=== PATIENT | female | born 1995 | race Caucasian/White ===

== ENCOUNTER 2021-06-28 21:52 | Inpatient (IN) ==
[2021-06-28] MEDS ORDERED: OXYTOCIN 30 UNITS/500 ML BAG IV PRN ×2 (22:03)
--- NOTE | 2021-06-28 22:40 | Labor Progress Brief Note ---
Date of Service June 28, 2021 Subjective 26yo at 38w6d with SIUP, presents with PROM at home this evening for copious clear fluid. No CTX, no VB, good FM. C/B GDM diet controlled and obesity. Assessment & Plan (1) PROM (premature rupture of membranes): Plan: Ruptured, not in labor, good status. Discussed induction with pitocin being recommended, patient is agreeable to this. Hoping to avoid epidural. Admission and Anticipated Discharge Date Admission Date: June 28, 2021 Physical Exam Constitutional: WD/WN, vitals as above Eyes: PERRL, conjunctivae normal, anicteric sclerae ENMT: external ear and nose normal, oropharynx normal Neck: supple Respiratory: normal respiratory effort and able to speak in complete sentences; no respiratory distress Cardiovascular: Rate/Rhythm: regular rate and regular rhythm Extremities: + pedal edema Gastrointestinal (Abdomen): Gravid / AGA, nontender Musculoskeletal: no cyanosis or clubbing, extremities motor strength 5/5 Skin: no rashes, warm and dry Neurologic: patellar DTR's 2+ bilat, sensation intact Psychiatric: A+Ox3, euthymic affect Genitourinary: Speculum/Bimanual Exam: no vaginal lesions, no vaginal bleeding and uterus nontender OB Exam Abdomen: + vertex, + estimated weight (7) and + regular contractions (Q3) Manual OB Exam: + cervical dilation 2 cm, + cervical effacement 80%, + station -2 and + amniotic fluid clear OB Exam Monitor Tracing: + external FHT monitor used, + external uterine monitor used and + category I Lymphatic: no cervical or axillary lymphadenopathy Results & Data ([facility]) Vital Signs (Past 12 Hours) Vital Signs Temp Pulse Resp BP 06/28/21 22:14 82 129/72 06/28/21 22:06 98.1 F 18 06/28/21 22:00 91 H 140/77 Coding Level of Care Code None Diagnoses PROM (premature rupture of membranes) O42.90
[2021-06-28 22:47] LABS: Hematocrit (blood only) 36.8 % (37-47); Mean Corpuscular Hemoglobin 28.1 pg (25-34); Mean Corpuscular Hgb Conc 32.6 g/dL (32-36); Mean Corpuscular Volume 86.2 fL (80-100); Mean Platelet Volume 10.2 fL (7.4-10.4); Platelet Count 293 K/uL (130-400); RDW Coefficient of Variation 13.7 % (11.5-14.5); RDW Standard Deviation 42.7 fL (36.4-46.3); Red Blood Count 4.27 M/uL (4.2-5.4); White Blood Count 11.16 K/uL (4.8-10.8)
[2021-06-28] MEDS: LACTATED RINGER'S 1,000 ML IV PRN (23:32)
[2021-06-29] MEDS: LACTATED RINGER'S 1,000 ML IV PRN ×2 (00:04→06:11)
[2021-06-29] MEDS ORDERED: BUTORPHANOL TARTRATE 1 MG/ML VIAL IV STA (03:49)
[2021-06-29] MEDS ORDERED: fentaNYL 2MCG/ML ROPIVACAINE 1.25MG/ML 100 ML BAG EPI ONE (06:07)
[2021-06-29] MEDS ORDERED: fentaNYL citrate 100 MCG/2 ML VIAL ONE (06:07)
[2021-06-29] MEDS ORDERED: SODIUM CHLORIDE 0.9% INJ 10 ML VIAL ONE (06:07)
[2021-06-29] MEDS ORDERED: ePHEDrine sulfate 50 MG/ML AMP ONE (06:07)
[2021-06-29] MEDS ORDERED: BUPIVACAINE 0.25% 30 ML VIAL ONE (06:07)
[2021-06-29] MEDS ORDERED: fentaNYL 2MCG/ML ROPIVACAINE 1.25MG/ML 100 ML BAG EPI PRN (06:54)
[2021-06-29] MEDS ORDERED: NALOXONE HCL 1 MG in SODIUM CHLORIDE 0.9% 1000ML 1,000 ML IV PRN (06:54)
[2021-06-29] MEDS ORDERED: ONDANSETRON INJ 2 MG/ML 2 ML VIAL IV PRN (06:54)
[2021-06-29] MEDS ORDERED: NALBUPHINE HCL INJ 10 MG/ML AMP IV PRN (06:54)
[2021-06-29] MEDS ORDERED: NALOXONE HCL 0.4 MG/1 ML VIAL/CARP IV PRN (06:54)
[2021-06-29] MEDS ORDERED: diphenhydrAMINE 50 MG/ML VIAL IV PRN (06:54)
[2021-06-29] MEDS ORDERED: ePHEDrine sulfate 50 MG/ML AMP IV PRN (06:54)
[2021-06-29] MEDS ORDERED: PROMETHAZINE HCL 6.25 MG in SODIUM CHLORIDE 0.9% 50 ML IV PRN (06:54)
--- NOTE | 2021-06-29 06:54 | Anesthesiology Consultation ---
Date of Service June 29, 2021 Assessment & Plan Chart Review Chart Review: Patient NOT seen in Pre Admission Testing and Acceptable Risk for Labor Epidural Consults Requested none ASA ASA2 Proposed Anesthesia Anesthesia Type: Labor Epidural Risk / Benefits Reviewed With: PT / POA / Parent / Guardian, Accepts Plan and Informed Consent Obtained History Height/Weight Height: 5 ft 6 in Weight: 104.326 kg Allergies Allergy/AdvReac Type Severity Reaction Status Date / Time No Known Allergies Allergy Verified 06/22/21 15:35 Medications Home Medications Medication Instructions Recorded Confirmed Last Taken prenat.vits,louann,klb-gopy-efrhd 1 tab PO DAILY 11/10/20 06/28/21 06/28/21 breast pump #1 ea 01/19/21 06/22/21 Unknown acetone (urine) test (Ketone Urine #50 ea 05/07/21 06/22/21 Unknown Test) blood sugar diagnostic (OneTouch #150 ea 05/07/21 06/22/21 Unknown Verio test strips) blood-glucose meter (OneTouch #1 ea 05/07/21 06/22/21 Unknown Verio Flex meter) lancets 33 gauge (OneTouch Delica #150 ea 05/07/21 06/22/21 Unknown Plus Lancet) Active Medications Generic Name Dose Route Start Last Admin Trade Name Freq PRN Reason Stop Dose Admin Oxytocin 30 units in 500 mls @ 13 mls/hr 06/28/21 22:03 06/29/21 05:05 Pitocin IV 06/30/21 22:02 0.78 units/hr .Q24H PRN 13 mls/hr Labor Induction/Augmentation Titration Protocol 0.78 UNITS/HR Lactated Ringer's 1,000 mls @ 125 mls/hr 06/28/21 22:03 06/29/21 06:11 Lr IV 06/30/21 22:02 125 mls/hr .Q8H PRN Administration L&D Protocol Protocol Exercise / Class Metabolic Activity II 4-5 Yardwork/Stairs/Walk up hill Past Family History Family History Other Heart disease Past Surgical History Surgical History History of ear surgery History of toe surgery S/P tonsillectomy Past Anesthesia History No Hx of Anesthesia Complications and No Family Hx of Anesthesia Complications History of PONV No Hx of PONV and No Hx of Motion Sickness Social History Smoking Status: Never smoker Hx Alcohol Use: No Hx Substance Use: No substance use type: does not use Physical Exam Vital Signs Last Vital Signs Temp 36.6 C 06/29/21 03:25 Pulse 93 H 06/29/21 06:51 Resp 18 06/29/21 03:25 BP 130/77 06/29/21 06:51 Pulse Ox 96 06/29/21 06:48 ENMT Mouth: no dentition abnormality Thyromental Distance: > or= 3.5 Finger Breadths Mallampati Class: II Neck normal visual inspection Respiratory normal respiratory effort Auscultation: lungs clear to auscultation bilaterally Cardiovascular Rate/Rhythm: regular rate and regular rhythm Psychiatric Orientation: alert Testing Laboratory Results 06/28/21 22:24 06/28/21 22:40 POC Glucose 99
--- NOTE | 2021-06-29 07:19 | Labor Progress Brief Note ---
Date of Service June 29, 2021 Subjective Comfortable with epidural just placed. Assessment & Plan (1) PROM (premature rupture of membranes): Plan: Continue current mgmt Admission and Anticipated Discharge Date Admission Date: June 28, 2021 Physical Exam Genitourinary: 4/100/+1 FHT cat 1 [place] Q3 when well traced Results & Data ([facility]) Vital Signs (Past 12 Hours) Vital Signs Temp Pulse Resp BP Pulse Ox 06/29/21 07:16 72 120/80 06/29/21 07:13 84 96 06/29/21 07:09 85 123/74 06/29/21 07:08 80 96 06/29/21 07:07 83 128/69 06/29/21 07:05 96 H 123/63 06/29/21 07:03 90 122/64 97 06/29/21 07:01 83 122/64 06/29/21 06:59 79 125/63 06/29/21 06:58 82 95 06/29/21 06:57 81 128/65 06/29/21 06:55 88 132/64 06/29/21 06:53 89 134/67 96 06/29/21 06:51 93 H 130/77 06/29/21 06:49 85 127/67 06/29/21 06:48 71 96 06/29/21 06:46 81 138/82 06/29/21 06:43 68 100 06/29/21 06:38 99 H 82 L 06/29/21 06:23 72 131/74 06/29/21 05:10 80 133/77 06/29/21 04:12 77 134/63 06/29/21 03:25 97.9 F 18 06/29/21 02:06 75 120/58 L 06/29/21 02:03 99.0 F 18 06/29/21 00:06 77 144/86 H 06/29/21 00:00 98.1 F 18 06/28/21 22:14 82 129/72 06/28/21 22:06 98.1 F 18 06/28/21 22:00 91 H 140/77 Coding Level of Care Code None Diagnoses PROM (premature rupture of membranes) O42.90
[2021-06-29] MEDS ORDERED: LIDOCAINE 1% LOCAL 20 ML VIAL ONE (10:42)
[2021-06-29] MEDS ORDERED: SUPERCREAM 0.870% 15 GM JAR EXT PRN (11:19)
[2021-06-29] MEDS ORDERED: OXYTOCIN 30 UNITS/500 ML BAG IV PRN (11:19)
[2021-06-29] MEDS ORDERED: oxyCODONE/ACETAMINOPHEN 5mg/325mg TAB PO PRN (11:19)
[2021-06-29] MEDS ORDERED: DIPHTHERIA/TETANUS/PERTUSSIS 0.5 ML SYR/VIAL IM ONE (11:19)
[2021-06-29] MEDS ORDERED: BENZOCAINE 20% AER SPR 82.5 GM CAN EXT PRN (11:19)
[2021-06-29] MEDS ORDERED: bisacodyL 10 MG SUPP PR PRN (11:19)
[2021-06-29] MEDS ORDERED: HYDROCORTISONE ACETATE 25 MG SUPP PR PRN (11:19)
--- NOTE | 2021-06-29 11:19 | Delivery Summary ---
Vaginal Delivery Summary Date of Service June 29, 2021 Vaginal Delivery Summary and 3rd Degree LAC Vaginal Delivery Summary: Pre-delivery diagnoses: 26yo @ 39 0/7, GDMA1, obesity, PROM with IOL with pitocin Post-delivery diagnoses: same, mild shoulder dystocia Procedure: spontaneous vaginal delivery, repair of 3rd degree perineal laceration Surgeon: Hanh Alvarez DO Complications: none Findings: Viable female . Apgars:7/9. Weight pending, please see nursery records. Estimated blood loss: 400ml Description of delivery: The patient progressed to complete with epidural anesthesia. She then began to push. She spontaneously vaginally delivered a viable from the cephalic presentation. The head delivered in TONI position. No nuchal cord. The anterior shoulder did not deliver immediately - therefore patient was repositioned using McRobert's maneuver, suprapubic pressure applied. Attempt at delivery of posterior arm and rotation maneuvers unsuccessful, therefore patient was repositioned again using McRobert's and this was successful for delivery of anterior shoulder. This was followed by the posterior shoulder, followed by the body. The cord was doubly clamped and cut and immediately handed off to nursery team. A segment was retained for cord gases. Cord blood was obtained. The placenta was delivered spontaneously intact with a 3-vessel cord. The uterus and vagina were swept of clots and debris. IV pitocin was given. The uterus became firm. The cervix, vagina, and perineum were inspected and a 3rd degree perineal laceration was noted. The anal sphincter muscle was intact, however the muscle capsule was torn and therefore repaired with a figure of eight suture of chromic. The remaining 2nd degree laceration with bilateral sulcal extensions was repaired with 3-0 vicryl. Excellent hemostasis was observed. The mother and baby are recovering in stable and good condition in the room. Sponge, needle and instrument counts were correct x 2. Hanh Alvarez DO [facility] Vaginal Delivery Charge Vaginal Delivery Codes: 80189 global code for the antepartum, delivery, and post- Delivery Type Details: and 3rd Degree LAC
[2021-06-29 11:21] LABS: Base Excess Cord Arterial Bld 0.2 mEq/L (-9-1.8); CO2 Cord Arterial Blood 49 mmHg (39.1-73.5); HCO3 Cord Arterial Blood 27 mmol/L (19.7-28.5); PO2 Cord Arterial Blood 23 mmHg (4.1-31.7); pH Cord Arterial Blood 7.35 (7.1-7.38)
[2021-06-29 11:29] LABS: Oxygen Sat Cord Arterial Blood < 60.0 % (<60)
--- NOTE | 2021-06-29 13:19 | Anesthesia Procedure Note ---
Date of Service June 29, 2021 Anesthesia Post Epidural Note Vital Signs Vital Signs: Temp Pulse Resp BP Pulse Ox 98.1 F 105 H 18 136/72 97 06/29/21 08:55 06/29/21 13:18 06/29/21 08:55 06/29/21 13:18 06/29/21 11:08 Notes Mental Status: alert / awake / arousable and participated in evaluation Nausea / Vomiting: adequately controlled Pain: adequately controlled Airway Patency, RR, SpO2: stable & adequate BP & HR: stable & adequate Hydration State: stable & adequate Neuraxial Anesthesia: was administered and sensory block is resolving Anesthetic Complications: no major complications apparent and Pt Satisfied with anesthetic care Epidural: Removed without complications and With tip intact
[2021-06-29] MEDS: IBUPROFEN 600 MG TAB PO PRN ×2 (13:33→21:27)
[2021-06-29] MEDS: DOCUSATE SODIUM 100 MG CAP PO SCH (21:45)
[2021-06-30] MEDS: IBUPROFEN 600 MG TAB PO PRN ×4 (05:00→23:18)
[2021-06-30 06:28] LABS: Hematocrit (blood only) 30.7 % (37-47); Hemoglobin 9.7 g/dL (12.0-16.0)
--- NOTE | 2021-06-30 08:34 | Obstetrical Progress Note ---
Date of Service June 30, 2021 Assessment & Plan (1) Encounter for care and examination after delivery: Plan: 26yo PPD 1 s/p at 39 weeks complicated by shoulder dystocia and 3rd degree laceration -Continue routine care + bottom care -Vitals reviewed- afebrile -GBS neg -Encourage ambulation, regular diet -Pain control with ibuprofen, acetaminophen PRN -Encourage -Hgb 9.7 -discharge likely tomorrow -F/u in 6 weeks with OB after discharge Admission and Anticipated Discharge Date Admission Date: June 28, 2021 Supervising Physician Co-Signing Physician Notes Patient seen and evaluated and agree with the above findings and plan. Stable for discharge Subjective Ambulation: yes. to bathroom Voiding: yes Passing Gas: yes BM: not yet Diet Tolerance: regular Lochia: small Feeding Type: and bottle feeding Current Pain Level(1-10): 5 Review of Systems Review of Systems: Denies fevers/chills. Denies dyspnea, cough. Denies chest pain. Denies breast pain or discharge. Denies dysuria. Denies headache. Denies back pain. Denies nausea, vomiting. Physical Exam Physical Exam: General: Alert, oriented, no acute distress Cardiac: Regular rate and rhythm, normal S1, S2. No murmurs appreciated. Respiratory: Clear to auscultation, symmetric chest rise and fall. No wheezes or crackles. No increased work of breathing or accessory muscle use Abdomen: Soft, nontender, nondistended. Fundus firm and palpable at 1 cm below umbilicus. No guarding or rebound. Extremities: Warm, dry, well-perfused. No lower extremity edema, erythema or swelling. Results & Data ([facility]) Vital Signs (Past 12 Hours) Vital Signs Temp Pulse Resp BP Pulse Ox 06/30/21 05:00 36.6 C 91 H 18 112/78 06/30/21 00:15 36.7 C 87 18 107/75 99 06/29/21 20:45 36.5 C 83 16 106/71 99 Resident Activity Tracking Resident Involvement: Resident Care Provided Care Provided: OB Delivery
[2021-06-30] MEDS: PRENATAL VITAMIN 1 TAB PO SCH (08:36)
[2021-06-30] MEDS: DOCUSATE SODIUM 100 MG CAP PO SCH ×2 (08:36→20:15)
[2021-06-30] MEDS: ACETAMINOPHEN 325 MG TAB PO PRN ×2 (14:02→20:14)
[2021-06-30] MEDS ORDERED: bisacodyL 5 MG TABEC PO SCH (20:00)
[2021-07-01] MEDS: ACETAMINOPHEN 325 MG TAB PO PRN (02:25)
--- NOTE | 2021-07-01 08:27 | Obstetrical Progress Note ---
Date of Service July 01, 2021 Assessment & Plan (1) Encounter for care and examination after delivery: PPD#2 doing well. Desires DC home. Tailbone pain from last night still there, but is improving somewhat. Reviewed DC instructions. Followup office 6w. Subjective Ambulation: ambulating normally Voiding: no voiding problems Diet Tolerance:: regular diet Lochia:: Moderate Review of Systems All systems reviewed & are unremarkable except as noted in HPI & below Physical Exam Constitutional WD/WN, vitals as above no acute distress Respiratory normal respiratory effort Cardiovascular Rate/Rhythm: regular rate and regular rhythm Gastrointestinal (Abdomen) Inspection/Auscultation: abdomen normal to inspection; abdomen not distended Percussion/Palpation: abdomen soft Genitourinary OB Exam Abdomen: + fundal height Fundus: + firm; not tender Results & Data ([facility]) Vital Signs (Past 12 Hours) Vital Signs Temp Pulse Resp BP 06/30/21 23:30 36.5 C 69 18 115/77
[2021-07-01] MEDS: DOCUSATE SODIUM 100 MG CAP PO SCH (09:16)
[2021-07-01] MEDS: IBUPROFEN 600 MG TAB PO PRN (09:16)
[2021-07-01] MEDS: PRENATAL VITAMIN 1 TAB PO SCH (09:16)
== END 2021-07-01 10:00 | disposition home or self-care (01) | DRG 768 ==
LOC: OPB 21:52 → 4S1 21:56 → 4S2 06-29 15:45